=== PATIENT | female | born 1960 | race African-American/Black ===

== ENCOUNTER 2021-06-29 19:23 | Emergency (ER) | payer OTHER ==
[~2021-06-29] VITALS: Ht 167.6 cm; Wt 65.0 kg
[2021-06-29] MEDS ORDERED: ACETAMINOPHEN 500MG TABLET PO ONE (20:15)
[2021-06-29] MEDS ORDERED: HYDROCODONE/ACETAMINOPHEN 10/325MG TABLET PO ONE (22:15)
[2021-06-30] MEDS ORDERED: HYDROMORPHONE HCL/PF 2MG/ML CPJ IV ONE (00:15)
[2021-06-30 00:37] LABS: BASOPHILS % 0.4 % (0.0-2.0); HEMOGLOBIN. 12.1 g/dL (12.0-16.0); LYMPHOCYTES % 9.5 % (20.0-50.0); MEAN CORPUSCULAR HEMOGLOBIN 33.4 pg (28.0-32.0); MEAN CORPUSCULAR VOLUME 99.4 fL (81.0-99.0); MEAN PLATELET VOLUME 7.6 fl (7.4-10.4); NEUTROPHILS % 86.1 % (40.0-76.0); PLATELET 253 x1000/uL (130-400); RED BLOOD CELL COUNT 3.62 mill/uL (4.2-5.4); RED CELL DISTRIBUTION WIDTH 13.6 % (11.6-14.6)
[2021-06-30 00:43] LABS: CHLORIDE 110 mEq/L (98-107)
[2021-06-30] MEDS ORDERED: SODIUM CHLORIDE 0.9% 1,000 ML IV ONE (01:15)
[2021-06-30 05:25] VITALS: BP 123/77
== END 2021-06-30 05:49 | disposition short-term general hospital (02) ==
LOC: ER 19:23
DX: S72.001A Fracture of unspecified part of neck of right femur, initial encounter for closed fracture (principal); M97.01XA Periprosthetic fracture around internal prosthetic right hip joint, initial encounter; F17.200 Nicotine dependence, unspecified, uncomplicated; Z20.822 Contact with and (suspected) exposure to COVID-19; W00.0XXA Fall on same level due to ice and snow, initial encounter; Y93.89 Activity, other specified; Y92.89 Other specified places as the place of occurrence of the external cause; Y99.8 Other external cause status
CPT/HCPCS: 36415; 72131; 73502; 73610; 80053; 85025; 87426; 96374; 99285; J1170

== ENCOUNTER 2022-11-26 12:48 | Emergency (ER) | payer MEDICAID, OTHER ==
[~2022-11-26] VITALS: Ht 167.6 cm; Wt 81.0 kg
[2022-11-26 12:51] VITALS: BP 139/89; RESP 20; TEMP 98.5; O2SAT 98
[2022-11-26 12:52] VITALS: PULSE 114
[2022-11-26] MEDS ORDERED: IBUP-2029 MT (15:10)
[2022-11-26] MEDS ORDERED: METH-653 MT (15:10)
== END 2022-11-26 15:25 | disposition home or self-care (01) ==
LOC: ER 14:35
DX: G89.29 Other chronic pain (principal); M54.6 Pain in thoracic spine
CPT/HCPCS: 99281; 99283